=== PATIENT | female | born 2000 | race Caucasian/White ===

== ENCOUNTER 2020-01-20 12:20 | Emergency (ER) | payer SELFPAY ==
[~2020-01-20] VITALS: Ht 160 cm; Wt 168.0 kg
[2020-01-20 12:23] VITALS: BP 131/89
--- NOTE | 2020-01-20 12:37 | NUR ---
PT CAME IN BECAUSE YESTERDAY SHE SAID "I DONT REMEMBER WHAT HAPPENED BUT I THINK I FELL AND HIT MY HEAD. I HAVE A REALLY BAD HEADACHE RIGHT NOW AND IM NAUSEUOUS AND I FEEL CONFUSED". PT IS ACCOMPANIED BY DAD. PT IS CONNECTED TO MONITORING EQUIPMENT AND A BLANKET HAS BEEN PROVIDED.
== END 2020-01-20 14:16 | disposition home or self-care (01) ==
LOC: ED 14:00
DX: S09.90XA Unspecified injury of head, initial encounter (principal); X58.XXXA Exposure to other specified factors, initial encounter; Y93.89 Activity, other specified; Y92.89 Other specified places as the place of occurrence of the external cause; Y99.8 Other external cause status
CPT/HCPCS: 70450; 72125; 99285

== ENCOUNTER 2020-01-23 20:22 | Emergency (ER) | payer SELFPAY ==
[~2020-01-23] VITALS: Ht 160 cm; Wt 167.3 kg
[2020-01-23] MEDS ORDERED: METOCLOPRAMIDE 5 MG/ML, 2ML IM ONE (21:30)
[2020-01-23] MEDS ORDERED: KETOROLAC 30 MG/1 ML IM ONE (21:30)
[2020-01-23] MEDS ORDERED: DIPHENHYDRAMINE 25 MG CAPSULE PO ONE (21:30)
[2020-01-23] MEDS ORDERED: DIPHENHYDRAMINE 25 MG CAPSULE ONE (21:40)
[2020-01-23] MEDS ORDERED: METOCLOPRAMIDE 5 MG/ML, 2ML ONE (21:40)
[2020-01-23] MEDS ORDERED: KETOROLAC 60 MG/2 ML ONE ×2 (21:40→21:41)
[2020-01-23 21:43] LABS: BASOPHILS # (AUTO) 0.05 x10^3/uL (0-0.3); BASOPHILS % (AUTO) 1 % (0-1); EOSINOPHILS # (AUTO) 0.24 x10^3/uL (0-0.8); EOSINOPHILS % (AUTO) 3 % (1-7); LYMPHOCYTES # (AUTO) 2.83 x10^3/uL (1-6.1); LYMPHOCYTES % (AUTO) 32 % (22-44); MD NO; MEAN CORPUSCULAR HEMOGLOBIN 28.7 pg (27.0-34.8); MEAN PLATELET VOLUME 8.7 fL (7.4-10.4); MONOCYTES # (AUTO) 0.67 x10^3/uL (0-1.4); MONOCYTES % (AUTO) 8 % (2-9); NEUTROPHILS # (AUTO) 5.18 x10^3/uL (1.8-8.0); NEUTROPHILS % (AUTO) 58 % (42-75); PLATELET COUNT 262 x10^3/uL (130-400); RED BLOOD COUNT 5.15 x10^6/uL (3.82-5.3); RED CELL DISTRIBUTION WIDTH 13.4 % (9.6-15.2)
[2020-01-23 21:56] LABS: ANION GAP 6 mmol/L (5-15); CHLORIDE 110 mmol/L (98-107); CREATININE 0.68 mg/dL (0.55-1.02)
[2020-01-23 23:25] VITALS: BP 116/76
== END 2020-01-23 23:26 | disposition home or self-care (01) ==
LOC: ED 23:11
DX: R51 Headache (principal); F07.81 Postconcussional syndrome; R42 Dizziness and giddiness; R94.31 Abnormal electrocardiogram [ECG] [EKG]
CPT/HCPCS: 36415; 70450; 80048; 82040; 84703; 85025; 93005; 96372; 99285; J1885; J2765; Q0163